=== PATIENT | male | born 1975 | race Caucasian/White ===

== ENCOUNTER → 2017-01-23 | Day surgery (SDC) | payer OTHER ==
[~2017-01-23] VITALS: Ht 177.8 cm; Wt 113.5 kg
== END | disposition home or self-care (01) ==
LOC: FAS 05:47
DX: G56.01 Carpal tunnel syndrome, right upper limb (principal); K21.9 Gastro-esophageal reflux disease without esophagitis; F43.10 Post-traumatic stress disorder, unspecified; F32.9 Major depressive disorder, single episode, unspecified; Z88.5 Allergy status to narcotic agent; Z88.0 Allergy status to penicillin; Z87.891 Personal history of nicotine dependence; Z90.49 Acquired absence of other specified parts of digestive tract; Z79.1 Long term (current) use of non-steroidal anti-inflammatories (NSAID); Z79.899 Other long term (current) drug therapy; Z98.890 Other specified postprocedural states
CPT/HCPCS: J2405; J2704; J3010

== ENCOUNTER → 2021-12-23 | Day surgery (SDC) | payer OTHER ==
[~2021-12-23] VITALS: Ht 175.3 cm; Wt 130.6 kg
[~2021-12-23] MED LIST: CYCLOBENZAPRINE10 MG PO; DICLOFENAC SODI50 MG PO; ETODOLAC400 MG PO; FLEXERIL10 MG PO; FLOMAX0.4 MG PO; GABAPENTIN800 MG PO; HYDROCODON-ACE1 EAC6 PO; HYDROCODONE/APA1 TAB PO; LYRICA150 MG PO; MEDROL 4MG DOSEP4 MG PO; MELOXICAM15 MG PO; NARCAN4 MG; NEURONTIN800 MG PO; ONDANSETRON ODT4 MG PO; OXYCODON-ACETA1 EAC1 PO; PRAZOSIN HCL5 MG PO; PRILOSEC20 MG PO; PRINIVIL10 MG PO; PROZAC20 MG PO; TAMSULOSIN HCL0.4 MG PO; TIZANIDINE HCL4 MG PO; TOPAMAX25 MG PO; TOPAMAX50 MG PO; VICODIN 10/3251 EACH PO; VOLTAREN **OUT50 MG PO; ZANTAC150 MG PO; ZYRTEC10 M3 PO
[2021-12-23 09:26] LABS: BUN/CREAT RATIO (CALC) 18.1 RATIO; CREATININE 0.94 mg/dL (0.67-1.17); POTASSIUM 3.8 mmol/L (3.5-5.1)
== END | disposition home or self-care (01) ==
LOC: FAS 11-11 09:30
PROVIDERS: Anesthesiology
DX: G62.9 Polyneuropathy, unspecified (principal); M54.18 Radiculopathy, sacral and sacrococcygeal region; Z96.651 Presence of right artificial knee joint; Z91.030 Bee allergy status; Z91.011 Allergy to milk products; Z88.5 Allergy status to narcotic agent; Z88.0 Allergy status to penicillin; Z91.048 Other nonmedicinal substance allergy status
CPT/HCPCS: 36415; 72220; 76000; 80048; 93005; C1897; J0690; J1170; J1885; J2001; J2250; J2704; J3010; J7120